=== PATIENT | male | born 1950 | race Caucasian/White ===

== ENCOUNTER 2019-01-21 22:03 | Emergency (ER) | payer OTHER ==
--- NOTE | 2019-01-21 22:22 | EDPHY ---
H & P Stated Complaint: R leg pain, poss DVT Time Seen by Provider: 01/21/19 22:10 HPI/ROS: HPI The patient presents with right lower extremity pain which began tonight and was constant, in his popliteal region and lateral lower will write thigh. The pain is achy and not associated with any swelling. The patient took a 4 hr flight today landing in to [place]. He does have a prior history of pulmonary embolism in 2013 which was thought to be provoked by an airplane flight. He has Lovenox which is prescribed for prophylaxis for flights greater than 3 hr. He took 1 dose of this tonight. He has had right calf tightness over the last several weeks. However this seems more severe.. REVIEW OF SYSTEMS 10 systems were reviewed and negative with the exception of the elements mentioned in the history of present illness. PMHx: Pulmonary embolism Soc Hx: Works as a new vehicle sales consultant, travels frequently, here with his partner PHYSICAL General Appearance: Alert, no distress Eyes: Pupils equal and round no pallor or injection ENT, Mouth: Mucous membranes moist Respiratory: Breathing comfortably Neurological: A&O, moves all extremities Skin: Warm and dry, no rashes Musculoskeletal: Right popliteal fossa is tender to palpation diffusely without any edema or fullness, there is full range of motion of the knee with no edema, there is no calf edema Extremities: symmetrical, full range of motion Psychiatric: Patient is oriented X 3, there is no agitation Source: Patient Exam Limitations: No limitations - Personal History Current Tetanus/Diphtheria Vaccine: Unsure - Medical/Surgical History Hx Asthma: No Hx Chronic Respiratory Disease: No Hx Diabetes: No Hx Cardiac Disease: No Hx Renal Disease: No Hx Cirrhosis: No Hx Alcoholism: No Hx HIV/AIDS: No Hx Splenectomy or Spleen Trauma: No Other PMH: hx PE 2013, depression - Social History Smoking Status: Never smoked Constitutional: Initial Vital Signs Temperature (C) 36.7 C 01/21/19 22:05 Heart Rate 76 01/21/19 22:05 Respiratory Rate 16 01/21/19 22:05 Blood Pressure 137/77 H 01/21/19 22:05 O2 Sat (%) 92 01/21/19 22:05 O2 Delivery Mode Room Air Allergies/Adverse Reactions: No Known Allergies Allergy (Unverified 01/21/19 22:06) Home Medications: Medication Instructions Recorded Bupropion HCl 01/21/19 Lovenox 01/21/19 Medical Decision Making - Diagnostics Imaging Results: Imaging Impressions Extremity Venous Study 01/21/19 22:19 Impression: There is no sonographic evidence of deep or superficial vein thrombosis in the right lower extremity. Findings were discussed with Tonya Harris MD at 23:09, on 01/21/2019. Differential Diagnosis: 68-year-old male with prior history of pulmonary embolism in 2013 presents with right leg pain after airplane flight. There is no trauma. He is neurovascularly intact. Plan for DVT study of his leg. Differential diagnosis includes DVT, muscle cramp, muscle strain, [place] cyst. DVT study returned negative. Suspect muscle strain. Plan to discharge patient home with instructions for rest, ice or heat packs and anti-inflammatory medications as needed. Departure - Departure Disposition: Home, Routine, Self-Care Clinical Impression: Strain of right knee and leg Condition: Good Instructions: Knee Pain (ED) Additional Instructions: Your ultrasound today does not show any DVT. Because of this, you do not need to continue the Lovenox or take any other special precautions. You should use ice or heat pack. You can take ibuprofen or Tylenol as needed for pain. Referrals: Adriana Pedersen MD [Medical Doctor] - As per Instructions
[2019-01-21 23:20] VITALS: BP 114/61
== END 2019-01-21 23:19 | disposition home or self-care (01) ==
DX: M70.961 Unspecified soft tissue disorder related to use, overuse and pressure, right lower leg (principal); Z86.711 Personal history of pulmonary embolism; Z79.899 Other long term (current) drug therapy